=== PATIENT | female | born 1985 | race Caucasian/White ===

== ENCOUNTER 2023-11-18 06:16 | Day surgery (SDC) | payer OTHER, SELFPAY ==
[2023-11-03 09:14] VITALS: BMI 46.3
[2023-11-03 10:19] LABS: % Basophils 0.8 % (0-2); % Eosinophils 4.2 % (0-6); % Immature Granulocytes 0.4 % (0-0.5); % Monocytes 7.8 % (1.7-9.3); % Neutrophils 54.8 % (42.2-75.2); Absolute Basophils 0.1 10^3/uL (0-0.2); Absolute Eosinophils 0.3 10^3/uL (0-0.7); Absolute Lymphocytes 2.4 10^3/uL (1.2-3.4); Absolute Monocytes 0.6 10^3/uL (0.1-0.6); Absolute Neutrophils 4.1 10^3/uL (1.4-6.5); Hemoglobin 14.4 g/dL (12.0-16.0); Mean Corp Hgb Conc. 35.1 g/dL (33.0-37.0); Mean Corpuscular Hgb 32.8 pg (27.0-31.0); Mean Corpuscular Volume 93.4 fL (81.0-99.0); Mean Platelet Volume 11.5 fL (7.4-10.4); Nucleated Red Blood Cells % 0 %; Platelet Count 194 10^3/uL (130-400); Red Blood Cell Count 4.39 10^6/uL (4.20-5.40); Red Cell Dist. Width 12.2 % (11.5-14.5); White Blood Cell Count 7.5 10^3/uL (4.8-10.8)
[2023-11-03 11:10] LABS: ALT (SGPT) 24 U/L (0-35); AST (SGOT) 22 U/L (14-36); Albumin 4.1 g/dl (3.5-5.0); Alkaline Phosphatase 60 U/L (38-126); Blood Urea Nitrogen 18 mg/dl (7-17); Calcium 9.1 mg/dl (8.4-10.2); Carbon Dioxide 23 mmol/L (22-30); Chloride 108 mmol/L (98-107); Estimated Creatinine Clearance > 125 ml/min; Glucose 86 mg/dl (70-99); Potassium 4.6 mmol/L (3.5-5.1); Sodium 137 mmol/L (135-145); Total Bilirubin 0.4 mg/dl (0.2-1.3); Total Protein 6.6 g/dl (6.3-8.2); eGFR > 60.00
[2023-11-18] VITALS (12 sets, daily range): BP systolic 5–131; BP diastolic 53–77; BMI 46.3
[2023-11-18] MEDS: NORMOSOL-R 1000 IV ×2 (11:30→17:11)
[2023-11-18] MEDS: TYLENOL 1000 MG PO (11:36)
--- NOTE | 2023-11-18 12:00 | W.SUR.PREOP ---
Pre-Operative Surgical Note
-
I have examined this patient prior to the performance of the scheduled procedure.
The patient's condition is unchanged from the time of the current History and
Physical and the patient is able to undergo the scheduled procedure.
--- NOTE | 2023-11-18 13:44 | SUR.OPER ---
PATIENT SUPINE, ARMS EXTENDED AND SECURED ON PADDED ARM BOARDS, PILLOW UNDER KNEES, SACRAL OPTIFOAM PAD, ANKLES SUPPORTED ON GEL.
GLASSES IN CASE WITH SPOUTER
--- NOTE | 2023-11-18 14:41 | SUR.OPER ---
TISSUE REMOVED, RIGHT SIDE 6.4LBS, LEFT SIDE 5.8LBS
[2023-11-18] MEDS: COMPAZINE 5 MG IV (16:46)
--- NOTE | 2023-11-18 16:49 | W.IMMPOSTOP ---
Surgical Immed Post Op Note
-
Primary Surgeon: CONNIE Davis MD
Assisting Surgeon:
Pre-op Diagnosis: Abdominal pannus, intertrigo
Post-op Diagnosis: same
Procedure Performed: panniculectomy
Anesthesia Type: General
Specimen / Cultures: none
Estimated Blood Loss: 100 cc
Complications: none
Operative Findings: as expected
[2023-11-18] MEDS: DILAUDID 0.5 MG IV ×2 (16:50→17:28)
--- NOTE | 2023-11-18 16:51 | OR.RPT ---
Operative Report
Operative Report
Surgeon: CONNIE Davis MD
Date of surgery: 11/18/2023
Preoperative diagnosis: Abdominal pannus, intertrigo
Postoperative diagnosis: Same
Procedure: Abdominal panniculectomy
Anesthesia: General
Complications: None
EBL: 100 cc
Indications for procedure: Patient is a 38-year-old female morbidly obese status post multiple children via vaginal delivery. She has a large overhanging abdominal pannus that is interfering with her activities of daily life. This is resulted in
multiple skin lesions and excoriations as well as intertrigo at the skin folds. Insurance based panniculectomy was discussed at length and prior authorization was obtained. Risks of the procedure include delayed wound healing, scar, VTE,, hematoma
infection and need for repeat procedure. We discussed at length that this was not a cosmetic procedure and as such cosmetic outcome could not be assured. She understood these risk desired to proceed. She was a former smoker and committed to
nicotine cessation more than 3 months prior to surgery. She continues to abstain.
Procedure in detail: Patient was identified in the preoperative area and the surgical site was confirmed to be the lower abdominal pannus. A large wide ellipse was drawn from hip to hip encompassing the excess skin and fat. It was discussed that
the lateral flanks would not be addressed at this time and this would result in inevitable dogears. Consents were confirmed and all questions were answered. She was taken back to the operating room placed supine on table. Anesthesia was induced
and the patient was prepped and draped in the usual sterile fashion using ChloraPrep solution. Timeout for patient safety was performed was confirmed that bilateral SCDs were in place, preoperative chemoprophylaxis had been administered in the
thigh, and preoperative antibiotics have been administered. Procedure began first with the injection of dilute 1% lidocaine with epinephrine along the proposed incisions. 10 blade was then used to first incise the superior marking. Bovie
electrocautery was continued down through the subcutaneous tissues to the abdominal wall. Dissection continued along the level of the fascia inferiorly freeing the tissues. Combination of cauterization and clip ligation of blood vessels to place.
An incision was then made around the umbilicus and a large vascular pedicle was protected. The pannus was then split along the midline using a 10 blade dissection continued along inferiorly to the level of the proposed inferior incision. A
selective amount of superior undermining was performed to allow for skin excursion while ensuring protection of the blood vessels. With traction upwards on the redundant skin the inferior marking was then confirmed to allow for tension-free
closure. The abdominal pannus was then excised in total and meticulous hemostasis was ensured. The wound bed was thoroughly irrigated with warmed normal saline. 2 large bore Fermin drains were placed along the abdominal wall. The superior aspect
of the umbilicus was marked with a stitch. Without any flexion at the waist of the wound was able to be closed without undue tension. Slight flexion then took place and the wound was closed in multiple layers with 0 PDS sutures in the deep
Aviva's followed by 2-0 Vicryl in an intermediate fashion. Aviva's was then oversewn with an 0 PDS barbed suture. Combination of 3-0 Monocryl and INSORB dermal stapler were completed in the intermediate layer. Superficial closure was completed
with 3 oh Loíza Derm Quill suture. Supporting vertical mattress sutures were placed selectively along the skin incision to reduce tension. The wound was then dressed with bacitracin ointment and ABD pads and an abdominal binder was placed. Patient
tolerated the procedure well was performed without complication. All counts were correct at the end the case. Patient was extubated taken the PACU for further care.
--- NOTE | 2023-11-18 18:49 | PTCARENOTE ---
pt admitted to room 2115 from the PACU at 1820. pt arrived awake and alert. c/o slight nausea. admission database and assessment as documented. telemetry placed and reading SR 60's. abdominal binder in place, removed w/[employer] and lower
abdominal dressing observed to be clean and dry. CATHERINE drains noted right and left of abdominal dressing. abdominal binder re-applied. pt oriented to room, call levi and plan of care with verbalized understanding. will observe.
[2023-11-18] MEDS: TYLENOL PO (19:04)
[2023-11-18] MEDS: ANCEF 5 IV (20:40)
[2023-11-19] MEDS: TYLENOL 1000 MG PO ×3 (00:10→11:29)
[2023-11-19] MEDS: ULTRAM 100 MG PO ×3 (00:10→12:07)
[2023-11-19] MEDS: NORMOSOL-R IV ×2 (02:53→08:47)
[2023-11-19] MEDS: ANCEF 5 IV ×2 (03:23→11:29)
[2023-11-19 03:30] VITALS: BP 115/63
[2023-11-19] MEDS: VALIUM 2 MG PO (03:35)
[2023-11-19 08:00] VITALS: BP 116/63
[2023-11-19] MEDS: MORPHINE SULFATE 1 MG IV (08:39)
[2023-11-19] MEDS: FLUSH (NSS) 2 FLUSH IV ×2 (08:39→11:30)
--- NOTE | 2023-11-19 09:30 | W.PN.PLAS ---
Today's Communication
-
Discharge to home
Progress Note
Subjective Data
Pain well controlled
Subjective: Tolerating Regular Diet, Ambulatory, Vides Removed and Patient Voided
Objective Data
Vital Signs
Temp Pulse Resp BP Pulse Ox
98.9 F 80 22 116/63 99
11/19/23 08:00 11/19/23 08:00 11/19/23 08:00 11/19/23 08:00 11/19/23 08:30
Intake and Output
11/18/23 11/19/23 11/20/23
06:59 06:59 06:59
Intake Total 3120 / 3120
Output Total 2440 / 2440
Balance 680 / 680
Intake:
Oral fluids 1920 / 1920
IV fluids (Total) 1200 / 1200
Normosol 200 / 200
Output:
Drain Output (Total) 190 / 190
Left Abdomen Jaime-Norman B 60 / 60
Right Abdomen Jaime-Norman A 130 / 130
Urine, Vides 450 / 450
Urine, Voided 1800 / 1800
PEx:
NAD
No increased WOB
Incisional intact
No appreciable undrained fluid collections
CATHERINE drains serosang
Abd binder
Lab Results
11/03/23 08:30
11/03/23 08:30
Assessment / Plan
S/P panniculectomy
Doing well
SCDs/Heparin SQ
Ambulate
Abd binder
PO pain control
Reg diet
--- NOTE | 2023-11-19 09:30 | W.DCSUMMARY ---
Discharge Summary
Discharge Data
Date of Admission: 11/18/23
Date of Discharge: 11/19/23
-
Pending Results: No
Hospital Course
Admitted for post surgical recovery for nausea/vomiting, pain control, and monitoring for bleeding and VTE.
Followed a routine course.
On POD1 she was ambulating, voiding, tolerating regular diet.
Pain medicines to be dictated by pain specialist per patients wishes.
Discharge Plan
-
Patient Disposition: Home (Routine Discharge)
Discharge Diagnosis/Procedures: s/p panniculectomy
Diet: Regular
Activity: No strenuous activity
Driving Restrictions: Not until seen by your Dr
Bathing Restrictions: OK to Shower
Referrals:
Billy Duarte MD [Family Provider] -
Prescriptions:
New
acetaminophen [Tylenol Extra Strength] 500 mg Tablet
1,000 mg PO Q6H 30 Days Qty: 240 0RF
Continued
tramadol 50 mg Tablet
50 mg PO QID
Benifiber
1 tbspn PO BID
Super Gut
10.5 g PO DAILY
ibuprofen 600 MG tablet
800 mg PO Q4HPRN PRN (Reason: moderate pain/cramps)
Discharge Orders:
Discharge Patient (As Directed); Ordered 11/19/23
Ordered By: Christos Davis
Discharge Date and Time
Print Language: GERMAN
--- NOTE | 2023-11-19 10:03 | CM ---
Reviewed the chart notes and spoke with the patient at the bedside. The patient resides with her significant other in a two story home with three steps to enter. The patient reports no DME/VN/SNF in the past. The patient confirmed her pharmacy of
choice is the [facility]. CM continues to be available to patient/family and is monitoring medical plan for needs at discharge.
Plan: Discharge to home today. Patient's significant other to provide transportation.
[2023-11-19 12:00] VITALS: BP 126/64
== END 2023-11-19 13:29 | disposition home or self-care (01) ==
LOC: SDS 06:16
PROVIDERS: ATTENDING PHYSICIAN Surgery Plastic and Reconstructive Surgery; FAMILY PHYSICIAN Family Medicine; OTHER PHYSICIAN Orthopaedic Surgery; OTHER PHYSICIAN Orthopaedic Surgery Sports Medicine; OTHER PHYSICIAN Specialist
DX: L30.4 Erythema intertrigo (principal); E88.1 Lipodystrophy, not elsewhere classified; E66.01 Morbid (severe) obesity due to excess calories; Z68.42 Body mass index [BMI] 45.0-49.9, adult
CPT/HCPCS: 15830; 36415; 80053; 85025; 93005; A4648; C1729

== ENCOUNTER 2024-02-05 03:12 | Inpatient (IN) | payer OTHER, SELFPAY ==
[2024-02-04 21:10] VITALS: BP 152/98
[2024-02-04 21:24] LABS: % Basophils 0.5 % (0-2); % Eosinophils 0.9 % (0-6); % Immature Granulocytes 0.3 % (0-0.5); % Lymphocytes 20.5 % (20.5-51.1); % Monocytes 6.6 % (1.7-9.3); % Neutrophils 71.2 % (42.2-75.2); Absolute Basophils 0.1 10^3/uL (0-0.2); Absolute Eosinophils 0.1 10^3/uL (0-0.7); Absolute Lymphocytes 2.5 10^3/uL (1.2-3.4); Absolute Monocytes 0.8 10^3/uL (0.1-0.6); Absolute Neutrophils 8.6 10^3/uL (1.4-6.5); Hematocrit 40.8 % (37.0-47.0); Hemoglobin 14.4 g/dL (12.0-16.0); Mean Corp Hgb Conc. 35.3 g/dL (33.0-37.0); Mean Corpuscular Hgb 30.8 pg (27.0-31.0); Mean Corpuscular Volume 87.4 fL (81.0-99.0); Mean Platelet Volume 10.3 fL (7.4-10.4); Nucleated Red Blood Cells % 0 %; Platelet Count 225 10^3/uL (130-400); Red Blood Cell Count 4.67 10^6/uL (4.20-5.40); Red Cell Dist. Width 13.3 % (11.5-14.5)
[2024-02-04 21:38] LABS: HCG, Serum Qualitative Screen Negative
[2024-02-04 21:42] LABS: ALT (SGPT) 17 U/L (0-35); AST (SGOT) 28 U/L (14-36); Albumin 4.3 g/dl (3.5-5.0); Alkaline Phosphatase 81 U/L (38-126); Blood Urea Nitrogen 20 mg/dl (7-17); Calcium 9.5 mg/dl (8.4-10.2); Carbon Dioxide 23 mmol/L (22-30); Chloride 102 mmol/L (98-107); Glucose 98 mg/dl (70-99); Potassium 4.1 mmol/L (3.5-5.1); Sodium 134 mmol/L (135-145); Total Bilirubin 1.1 mg/dl (0.2-1.3); Total Protein 7.1 g/dl (6.3-8.2); eGFR > 60.00
[2024-02-04 21:43] LABS: Lipase 72 U/L (23-300)
--- NOTE | 2024-02-04 21:46 | ED.GENMED ---
History of Present Illness
General
Chief Complaint: Abdominal Symptoms
Source: patient
Time Seen by Provider: 02/04/24 21:29
Travel History
Have you had any contact with someone who has COVID-19?: No
Do you have any symptoms of coronavirus? Fever > 100 degrees, chills, cough, shortness of breath, sore throat, loss of taste or smell, muscle aches, or headache?: No
History of Present Illness
History of Present Illness:
38-year-old female presents emergency department with intractable vomiting all day long that then was noted to be blood-tinged the last 2 episodes of vomiting just prior to arrival. She has mild epigastric discomfort, without radiation,
exacerbating, relieving factors. She says she is felt 'weird' and fatigued for the last few days. She describes this epigastric discomfort as being present for about a week, constant, without associated back pain, chest pain, dyspnea, fever,
chills. She notes that she has had 'orangey red' urine a few days ago, now fully resolved without associated dysuria, urgency, frequency. She denies fever, chills, flank pain, vaginal bleeding. She has noted over the last week or so that when she
has a normal brown bowel movement she also notes a small amount of bright red blood and presumes it is related to hemorrhoids.
Past History
Past History
ED Past Medical History: Other (Hip dysplasia)
ED Past Surgical History: Cholecystectomy and Tonsilectomy
Social History
Tobacco: Former smoker
Alcohol: None
Drug: None
Personal:
Living: alone
Employment: Employed
Phy Exam
Physical Exam
Physical Exam:
GENERAL: Alert , in no apparent distress
EYE: pupils equal and reactive
NECK: Supple, no significant adenopathy.
ENT: o/p clr, mm slightly dry
CARDIAC: Regular rate and rhythm .
LUNGS: Clear breath sounds bilaterally, no acute respiratory distress, no wheezes/rales/rhonchi
ABDOMEN: Soft, mild epigastric tenderness, no r/g, no cvat
NEUROLOGICAL: Alert and oriented, no focal neuro deficits
SKIN: Warm and dry, skin intact.
MUSCULOSKELETAL: No edema, well perfused.
PSYCH: Normal and appropriate interaction.
Course
Orders/Labs/Results
Orders:
Orders
02/04/24 21:13
Test Result ONCE
02/04/24 21:17
Type+Screen Urgent
Complete Blood Count/With Diff Urgent
Comprehensive Metabolic Panel Urgent
HCG, Serum Qualitative Screen Urgent
Lipase Urgent
02/04/24 21:45
CT Abd/Pel (IV only)-DH only Urgent
Comment:
Reason For Exam: n/v/pain
Ondansetron Injectable [Zofran] 4 mg IV NOW STA
Pantoprazole [Protonix IV] 40 mg IV NOW STA
02/05/24 02:41
Admit/Transfer Patient As Directed
Co-Sign Provider:
Level of Care: Inpatient admission
Assign to:: Medical/Surgical
Physician / Group: Dr. Kwong
Transfer to: Medical/Surgical
Diagnosis: Abdominal pain/fluid collection in the abdomen.
Reason for Hospitalization: Patient with increased abdominal pain nausea and vomiting and abdominal fluid
collection in abdomen.
Expected length of stay greater than two midnights?: Yes
ELOS- Estimated Length of Stay in days: 2
I certify the patient meets the requirements for IP care: Yes
02/05/24 02:42
Code Status As Directed
Resuscitation Status: Full Code
02/05/24 02:44
HYDROmorphone [Dilaudid] 0.5 mg IV Q3HPRN PRN
Ondansetron Injectable [Zofran] 4 mg IV Q6HPRN PRN
02/05/24 02:47
Consult Notification Routine
Specialty to Notify: Plastic Surgery
Date consulting provider notified: 02/05/24
Time consulting provider notified: 10:17
Notified:: Provider
Consult Plastic Surgery [PLASTIC SURGERY CONSULT] Routine
Consulting Provider: Christos Davis
Was physician already notified: No
Reason for Consult: Abdominal fluid collection/post panniculectomy
02/05/24 03:43
Bisacodyl [Dulcolax] 10 mg RECTAL [id number] PRN
Docusate W/Senna [Senokot-S] 1 tablet PO BIDPRN PRN
Polyethylene Glycol Powder [Miralax] 17 grams PO DAILYPRN PRN
02/05/24 03:43
Activity As Directed
Activity Level: Out of Bed-Early Mobility
Pneumatic Compression Sleeves As Directed
Type: Knee high
Vital Signs As Directed
Frequency: Per unit guidelines
DX Deep Vein Thrombosis Video Routine
02/05/24 03:55
Blood Culture Q30M
MARCIO Source: Blood/Venous
Specimen Description:
Blood Culture Q30M
MARCIO Source: Blood/Venous
Specimen Description:
02/05/24 04:00
Piperacillin/Tazo 3.375 Gram [Zosyn] 3.375 gram in 50 ml IV Q6H
02/05/24 07:58
Basic Metabolic Panel Routine
Complete Blood Count/With Diff Routine
02/05/24 08:00
Pantoprazole [Protonix IV] 40 mg IV DAILY
Abnormal Lab Results
02/04/24
21:17
WBC 12.0 H 10^3/uL
(4.8-10.8)
Absolute Neuts (auto) 8.6 H 10^3/uL
(1.4-6.5)
Absolute Monos (auto) 0.8 H 10^3/uL
(0.1-0.6)
Sodium 134 L mmol/L
(135-145)
BUN 20 H mg/dl
(7-17)
02/04/24 21:17
02/04/24 21:17
Vital Signs
Initial and Last Documented VS:
Initial Vital Signs
Temp Pulse Resp BP Pulse Ox
98.2 F 77 18 152/98 99
02/04/24 21:10 02/04/24 21:10 02/04/24 21:10 02/04/24 21:10 02/04/24 21:10
Last Documented Vital Signs
Temp Pulse Resp BP Pulse Ox
98.6 F 65 18 107/59 98
02/05/24 15:15 02/05/24 15:15 02/05/24 15:15 02/05/24 15:15 02/05/24 15:15
*Critical Care Note
Total Time (30-74mins, 75-104mins- exclusive of procedures): Not Applicable
Update Note
Update Note:
Patient presents to the Emergency Department with ___repeated vomiting now with blood
Number and Complexity of Problems Addressed at the Encounter
� Chronic conditions affecting care:
� Acute Exacerbation and/or Progression of Chronic Illness:
� Differential Diagnosis includes: But not limited to Kaycee-Leon tear, gastritis, gastroenteritis, varices, etc. etc.
Amount and/or Complexity of Data to be Reviewed and Analyzed
� I performed an independent evaluation of and my interpretation is:
EKG:
CT:Loculated fluid collection in the anterior pelvic wall superficial to the rectus musculature with accompanying bandlike subcutaneous inflammatory fat stranding. Findings likely represent a postoperative collection given the
reported history of a previous panniculectomy, and an infected collection is not excluded.
Xrays:
Laboratory Studies: Stable hemoglobin, nonspecific leukocytosis
Other:
� Review of other/old records reveals:
� Clinical information was obtained by an independent historian: Significant other who is bedside
� Prescriptions/Medications Considered but not given:
� Further testing considered but not performed:
Risk of Complications and/or Morbidity or Mortality of Patient Management
� Social determinants of health affecting care:
� Discussion with other providers (PCP, Hospitalists, Consultants, etc):
� Escalation of care including admission/observation vs risk of discharge considered: Patient has not had further episodes of vomiting, or bleeding, vital stable, hemoglobin stable. However, she does have a rather large
loculated fluid collection which may possibly be an infection, mild leukocytosis noted although patient is not having fevers chills or rigors. Recommendation for observation and surgery evaluation possible I&D/aspiration
ED Attending Note
-
Portions of this chart may have been created with voice recognition software.� Occasional wrong word or��sound alike� substitutions may have occurred due to the inherent limitations of voice recognition software.
Discharge Plan
Departure
Patient Disposition: Admit
Date of Disposition: 02/05/24
Time of Disposition: 01:28
Admit to: Med/Surg
Presentation/result/management discussed w/ accepting MD/DO: Hospitalist
Condition: Fair
Discharge Problem:
Abdominal fluid collection
Interventions
Interventions:
*Risk Screen - Suicide Last Done: 02/04/24 22:01
*General Assessment Last Done: 02/04/24 21:10
*Neglect/Abuse Screening Last Done: 02/04/24 22:01
*ED COVID-19 Vaccine History Last Done: 02/05/24 04:08
*Nursing Disposition Last Done: 02/05/24 03:30
ZY-Lzxvgh-Aklpdbepti Assessment Last Done: 02/04/24 22:01
Discharge Date and Time
Discharge Date/Time: 02/05/24 03:31
[2024-02-04] MEDS: PROTONIX IV 40 MG IV (21:52)
[2024-02-04] MEDS: ZOFRAN 4 MG IV (21:52)
[2024-02-04 21:58] VITALS: BP 117/72
[2024-02-04 21:59] VITALS: BMI 47.7
[2024-02-04 22:00] VITALS: BP 124/77
[2024-02-04 22:37] VITALS: BP 127/71
[2024-02-04 23:00] VITALS: BP 120/69
--- NOTE | 2024-02-05 02:48 | HPS.HSE ---
Family Physician
-
Family Physician: Billy Duarte
Chief Complaint
-
Abdominal pain nausea and vomiting
History of Present Illness
Patient 38 years old female history of abdominal panniculectomy back in November 17 this year, obesity, hip dysplasia, presented to the hospital with abdominal pain. Patient has been having abdominal pain, moderate intensity, epigastric area, no
radiation over the last few days associated with nausea and vomiting. Patient had some bloody tinged emesis today x 2. She also has generalized weakness. She denies any melena. She noticed some small amount of bright red blood but felt that it
was hemorrhoid related. She noticed her urine has been darker. She denies fevers or chills. Denies any chest pain or shortness of breath. In the ER, hemoglobin noted to be 14.4 similar that it was back in October. White blood cell count 12. CT
scan of the abdomen shows loculated fluid collection in the anterior pelvic wall superficial to the rectus musculature with accompanying bandlike subcutaneous inflammatory fat stranding likely represent a postoperative collection given the reported
history of previous panniculectomy and an infected collection is not excluded. She was referred to hospitalist for further evaluation.
Medical History
Past Medical History
Past Medical History: Reports Other (Obesity, hip dysplasia, osteoarthritis.)
Past Surgical History: Reports Other (Cholecystectomy, tonsillectomy, panniculectomy)
Social History
Tobacco: Former Smoker
Alcohol: None
Drug: None
Family History
Family History: Not pertinent
Allergies / Home Medications
Allergies reflects when Allergies were last updated in [facility].
Home Medications with original date entered in [facility]
Allergy/Medication List:
Allergies
Allergy/AdvReac Type Severity Reaction Status Date / Time
nitrofurantoin Allergy Paralesis Verified 11/18/23 11:19
[From Macrobid]
Home Medications
Benifiber 1 tbspn PO BID 11/12/23
Super Gut 10.5 g PO DAILY 11/12/23
ibuprofen 600 mg tablet 800 mg PO Q4HPRN PRN moderate pain/cramps 11/12/23
tramadol 50 mg tablet 50 mg PO QID 11/12/23
acetaminophen 500 mg tablet (Tylenol Extra Strength) 1,000 mg (2 x 500 mg) PO Q6H 30 days #240 tabs 11/19/23
Review of Systems
-
A 12 point ROS was completed and negative except as noted: Yes
Physical Exam
Vital Signs
Vital Signs
Temp Pulse Resp BP Pulse Ox
98.2 F 60 12 120/69 96
02/04/24 21:10 02/05/24 00:00 02/05/24 00:00 02/04/24 23:00 02/04/24 23:00
Physical exam:
General: Acutely ill
HEENT: Normocephalic, Atraumatic and Moist Mucous Membranes
Respiratory: Clear to Auscultation; Negative Wheezes, Rales or Rhonchi
Cardiac: Regular Rhythm and S1/S2
GI: Soft, Tender and Nondistended. Incision with mild erythema.
Musculoskeletal: No Clubbing, No Cyanosis and No Edema
Neuro: Awake, Alert and Oriented
Psych: Calm
Physical Exam
General: Other
Laboratory Results
-
02/04/24 21:17
02/04/24 21:17
Laboratory Results
Total Bilirubin 1.1 mg/dl (0.2-1.3) 02/04/24 21:17
AST 28 U/L (14-36) 02/04/24 21:17
ALT 17 U/L (0-35) 02/04/24 21:17
Alkaline Phosphatase 81 U/L (38-126) 02/04/24 21:17
Lipase 72 U/L (23-300) 02/04/24 21:17
Data Reviewed
-
CT Scan: Image Personally Visualized and interpreted
Lab Data: Labs Reviewed by me
Impression/Plan
-
IMPRESSION:
Patient 38 years old female with history of panniculectomy back in October came into the hospital with abdominal pain nausea and vomiting. Patient had mild episodes of hematemesis. CT scan with evidence of fluid collection concerns for infection.
Patient at increased risk morbidity mortality so she will need to be treated in the hospital and monitor accordingly.
PLAN:
Abdominal pain and associated loculated fluid collection in anterior pelvic wall:
Fluid collection concerns for infection but could be seroma postop related, less likely hematoma.
Keep n.p.o. for now
IV fluid
Pain control, IV Dilaudid as needed
Bowel regimen
Blood cultures
IV antibiotics, Zosyn and vancomycin
Plastic surgery consult
Hematemesis:
Probable gastritis or Kaycee-Leon tear in light of vomiting and no active signs of GI bleed at the moment and stable hemoglobin
Monitor hemoglobin closely
IV Protonix for now
No NSAIDs
Consider GI evaluation if significant drop of hemoglobin or active signs of bleeding.
Obesity:
Continue lifestyle changes modifications as outpatient
DVT prophylaxis:
SCDs
CODE STATUS:
Full code
Time spent 75 minutes
[2024-02-05 03:34] VITALS: BMI 46.6
[2024-02-05 03:46] VITALS: BP 128/72
--- NOTE | 2024-02-05 04:00 | PTCARENOTE ---
Patient arrived to floor accompanied by ED PCT, nursing assessment completed and as documented. Ambulated self to bed without difficulty. Call levi within reach and instructed use, oriented to room, VSS, care ongoing.
[2024-02-05] MEDS: ZOSYN 50 IV ×2 (04:06→11:08)
[2024-02-05] MEDS: NSS 1000 IV (04:06)
[2024-02-05] MEDS: ZOFRAN 4 MG IV (04:28)
[2024-02-05 07:10] VITALS: BP 117/89
[2024-02-05 08:23] LABS: % Basophils 0.5 % (0-2); % Eosinophils 2.4 % (0-6); % Immature Granulocytes 0.3 % (0-0.5); % Lymphocytes 28.3 % (20.5-51.1); % Monocytes 7.9 % (1.7-9.3); % Neutrophils 60.6 % (42.2-75.2); Absolute Eosinophils 0.2 10^3/uL (0-0.7); Absolute Lymphocytes 2.1 10^3/uL (1.2-3.4); Absolute Monocytes 0.6 10^3/uL (0.1-0.6); Absolute Neutrophils 4.5 10^3/uL (1.4-6.5); Hematocrit 38.6 % (37.0-47.0); Hemoglobin 12.9 g/dL (12.0-16.0); Mean Corp Hgb Conc. 33.4 g/dL (33.0-37.0); Mean Corpuscular Hgb 30.7 pg (27.0-31.0); Mean Corpuscular Volume 91.9 fL (81.0-99.0); Mean Platelet Volume 10.6 fL (7.4-10.4); Nucleated Red Blood Cells % 0 %; Platelet Count 183 10^3/uL (130-400); Red Cell Dist. Width 13.3 % (11.5-14.5); White Blood Cell Count 7.5 10^3/uL (4.8-10.8)
[2024-02-05 08:49] LABS: Blood Urea Nitrogen 18 mg/dl (7-17); Carbon Dioxide 24 mmol/L (22-30); Chloride 104 mmol/L (98-107); Estimated Creatinine Clearance > 125 ml/min; Glucose 84 mg/dl (70-99); Sodium 135 mmol/L (135-145); eGFR > 60.00
[2024-02-05] MEDS: PROTONIX IV 40 MG IV (09:04)
[2024-02-05] MEDS: NSS (PRESERVATIVE FREE) 10 ML IV (09:05)
[2024-02-05] MEDS: VANCOCIN 540 MG IV (09:06)
--- NOTE | 2024-02-05 10:12 | PHA.VAN.IN ---
Assessment
- Assessment
Renal Function: Appears similar to baseline
Concomitant Antimicrobials: piperacillin/tazobactam
AUC Dosing Plan
- Dosing Variables
Dosing Weight (kg): 123
Dosing CrCl (ml/min): 125
Vd coefficient (L/kg): 0.5
- Empiric Dosing
Initial / Loading Dose: 2000mg - 02/04 09:06
Maintenance Regimen: Vanc 1500mg Q12H starting at 1800
Estimated AUC (mcg*h/mL): 488
Estimated Peak (mcg*h/mL): 33.6
Estimated Trough (mcg/ml): 10.8
Estimated Half Life (H): 6.4
- Monitoring
No levels ordered at this time: consider levels in next few days
Pharmacokinetics Vancomycin I
- -
Patient Age: 38
Patient Sex: Female
Vancomycin Day #: 1
Indication: Gi / Intra-Abdominal
Requesting Provider: Dr. Kwong
Pertinent Antimicrobial Allergies:
nitrofurantoin - lost sensation from waist down
Height / Weight:
Height 5 ft 4 in
Actual Weight 123.014 kg
Pertinent Past Medical History: BMI ~47
- Vital Signs / Lab Results
Temp Pulse Resp BP Pulse Ox
98.6 F 63 18 117/89 100
02/05/24 07:10 02/05/24 07:10 02/05/24 07:10 02/05/24 07:10 02/05/24 07:10
Lab Results - Hematology
02/04/24 02/05/24
21:17 07:58
WBC 12.0 H 7.5
Lab Results - Chemistry
02/04/24 02/05/24
21:17 07:58
BUN 20 H 18 H
Creatinine 0.6 0.7
Estimated Creat Clear > 125
Albumin 4.3
--- NOTE | 2024-02-05 10:58 | CM ---
CM following re: discharge planning.
Reviewed pt's chart, met with pt.
Pt is a 38 year old female, admitted with primary dx of Abdominal pain.
pt reports she lives with a boyfriend and 4 children in a 2SH, 3 steps to enter, has 5 children, the oldest son joining [employer]. Pt described herself as independent in all areas [employer], drives, works.
PCP: Billy Duarte
Pharmacy: [facility]
D/C plan; home with anticipated no needs. boyfriend to transport at discharge.
CM will follow with discharge plan updates as hospitalization progresses
--- NOTE | 2024-02-05 12:46 | W.PN.UPDATE ---
Update Note
Progress Note Update
Nonbillable note
Hematemesis -patient had first episode of vomiting with some blood in it with followed by some more ashlyn blood containing vomitus. Suspecting Kaycee-Leon tear. No previous history of peptic ulcer disease. Hemoglobin have dropped from 14.5 to
13. Monitor for further episode. starting on CL Diet for now.
Abdominal wall incision site fluid collection-CTAP reviewed and showing superficial anterior pelvic wall fluid collection tracking around incision site. Plastic surgeon have been consulted, evaluation. Maintain on empiric IV vancomycin and Zosyn
for now. Patient had possibly minor reactive leukocytosis which has normalized. Afebrile. Clinically low concern for the fluid to be infected. May consider diagnostic drainage.
[2024-02-05 15:15] VITALS: BP 107/59
[2024-02-05] MEDS: NSS IV (15:33)
[2024-02-05 17:15] LABS: Hematocrit 39.4 % (37.0-47.0); Hemoglobin 13.5 g/dL (12.0-16.0); Mean Corp Hgb Conc. 34.3 g/dL (33.0-37.0); Mean Corpuscular Hgb 31.3 pg (27.0-31.0); Mean Corpuscular Volume 91.4 fL (81.0-99.0); Mean Platelet Volume 10.3 fL (7.4-10.4); Platelet Count 193 10^3/uL (130-400); Red Blood Cell Count 4.31 10^6/uL (4.20-5.40); Red Cell Dist. Width 13.2 % (11.5-14.5); White Blood Cell Count 9.1 10^3/uL (4.8-10.8)
[2024-02-05] MEDS: ZOSYN IV (18:05)
--- NOTE | 2024-02-05 18:48 | W.DCSUMMARY ---
Discharge Summary
Discharge Data
Date of Admission: 02/05/24
Date of Discharge: 02/05/24
-
Pending Results: No
Hospital Course
Discharging Physician : Dr Mitchel Christie
Disposition : Home
Primary care physician : Dr Billy Duarte
Principal Discharge diagnosis :
Lower abdominal wall fluid collection at panniculectomy site, presumably seroma
Hematemesis from likely Kaycee-Edward tear
Chronic Discharge diagnosis :
Obesity
History of cholecystectomy
Former smoker
Hospital Course :
Patient is a 38-year-old female with above-mentioned past medical history came to ER with having 2 episode of vomiting with blood in vomitus. Patient have undergone abdominal panniculectomy in November 18, 2023 and was not feeling well for last few
weeks. No specific complaints reported. Yesterday evening patient had episode of vomiting in which patient noticed some blood followed by another episode with more blood. Patient came to ER for further evaluation. Patient was vitally stable and
hemoglobin was 1 point down than baseline. Patient underwent CT abdomen pelvis which did not show any acute abnormality and incidental finding of surgical site/panniculectomy site linear horizontal fluid collection. There was question of this
being possibly infectious although lab was not suggesting of this. On exam patient did not have any significant erythema or any wound dehiscence noticed. Patient was empirically given antibiotics and was admitted to hospital for further
monitoring. Primary plastic surgeon was out of town although patient planning to follow-up in office within 72 hours when surgeon will be available to evaluate CT finding. Due to nature/size and clinical presentation I feel this is likely a seroma
discharging patient off of antibiotics. Further diagnostic tap/antibiotics deferred to primary surgeon.
Patient was started on trial of clear liquid diet as blood in vomitus was likely a Kaycee-Edward tear from retching/vomiting. Patient denies of having any previous history of peptic ulcer disease/GI bleed. Patient was provided oral Protonix
therapy and advised to avoid ibuprofen moving forward.
Patient was discharged home at this point with follow-up with plastic surgery in office.
Important imaging findings :
None
Procedure findings :
None
Discharge Plan
-
Patient Disposition: Home (Routine Discharge)
Discharge Diagnosis/Procedures: Hematemesis, possible kaycee edward tear, abdominal wall seroma
Condition: Fair
Additional Diets: Liquid diet for dinner, Can start regular food from tomorrow if no further nausea/vomiting
Activity: As tolerated
Driving Restrictions: As prior to admission
Bathing Restrictions: OK to Shower
Referrals:
Billy Duarte MD [Family Provider] - in one week
Christos Davis MD [Active] - 02/08/24
Additional Discharge Medication Instructions: STOP taking Ibuprofen or other NSAID.
Prescriptions:
New
pantoprazole [Protonix] 40 mg tablet,delayed release (DR/EC)
40 mg PO DAILY Qty: 30 1RF
Continued
tramadol 50 mg Tablet
50 mg PO QID
Benifiber
1 tbspn PO BID
Super Gut
10.5 g PO DAILY
acetaminophen [Tylenol Extra Strength] 500 mg Tablet
1,000 mg PO Q6H 30 Days Qty: 240 0RF
Discontinued
ibuprofen 600 MG tablet
800 mg PO Q4HPRN PRN (Reason: moderate pain/cramps)
Discharge Orders:
Discharge Patient (As Directed); Ordered 02/05/24
Ordered By: Mitchel Christie
Discharge Date and Time
Discharge Date/Time: 02/05/24 18:12
Print Language: CZECH
== END 2024-02-05 18:12 | disposition home or self-care (01) | DRG 369 ==
LOC: 2 SOUTH 03:12
PROVIDERS: ADMITTING PHYSICIAN Hospitalist; ATTENDING PHYSICIAN Hospitalist; EMERGENCY PHYSICIAN Emergency Medicine; FAMILY PHYSICIAN Family Medicine
DX: K22.6 Gastro-esophageal laceration-hemorrhage syndrome (principal); L76.34 Postprocedural seroma of skin and subcutaneous tissue following other procedure; Z68.42 Body mass index [BMI] 45.0-49.9, adult; E66.9 Obesity, unspecified; M19.90 Unspecified osteoarthritis, unspecified site; Z87.891 Personal history of nicotine dependence; Q65.89 Other specified congenital deformities of hip; Y83.8 Other surgical procedures as the cause of abnormal reaction of the patient, or of later complication, without mention of misadventure at the time of the procedure; Y81.3 Surgical instruments, materials and general- and plastic-surgery devices (including sutures) associated with adverse incidents; Z88.3 Allergy status to other anti-infective agents; Z90.49 Acquired absence of other specified parts of digestive tract
CPT/HCPCS: 74177; 80048; 80053; 83690; 84703; 85025; 85027; 86850; 86900; 86901; 87040; 96374; 96375; 99285; Q9967